=== PATIENT | female | born 1960 | race Caucasian/White ===

== ENCOUNTER 2020-09-02 15:58 | Emergency (ER) | payer BC, OTHER, SELFPAY ==
--- NOTE | ~2020-09-02 | XR_ITS ---
XR finger 5th LT min 2V DATE: 09/02/2020 16:16 INDICATION: Fall. Left fifth digit injury. TECHNIQUE: 4 views COMPARISON: None FINDINGS: There is a small degenerative ossicle or small avulsion fracture fragment of uncertain age at the anterior aspect of the proximal interphalangeal joint. Otherwise no fracture or dislocation, periosteal reaction or bone destruction is detected. No radiogr aphic foreign body or subcutaneous emphysema. IMPRESSION: Small degenerative ossicle or avulsion fracture of undetermined age at the anterior aspec t of the proximal interphalangeal joint Reviewed, dictated and finalized at location A. [facility] IMPRESSION: Small degenerative ossicle or avulsion fracture of undetermined age at the anterior aspect of the proximal interphalangeal joint
[2020-09-02 16:06] VITALS: BP 155/66; PULSE 66; RESP 16; TEMP 36.3; O2SAT 100
--- NOTE | 2020-09-02 16:13 | ED.UPPEXIN ---
HPI - Extremity Injury (Upper) General Chief Complaint: Extremity Injury, Upper Stated Complaint: injured finger Time Seen by Provider: 09/02/20 16:16 Source: patient and RN notes reviewed Mode of arrival: ambulatory Limitations: no limitations History of Present Illness HPI narrative: 60-year-old female presents with concern for pain to the fifth digit of the left hand after she caught the digit on her railing at home. Reports the digit was was deformed with the DIP joint being of place, reports she moved it back into place. Reports pain at the PIP joint, mild bruising and swelling. Denies any decreased sensation, range of motion, strength. MD complaint: injury to: finger Related Data Home Medications Medication Instructions Recorded Confirmed No Home Medications 09/02/20 09/02/20 Allergies Allergy/AdvReac Type Severity Reaction Status Date / Time codeine Allergy Unknown Other Verified 09/02/20 16:12 diazepam Allergy Unknown Other Verified 09/02/20 16:12 Review of Systems Review of Systems: Narrative: CONSTITUTIONAL: Denies malaise, chills, sweats, or fever. SKIN: Denies lacerations, abrasions, open skin MUSCULOSKELETAL: Reports pain, swelling, bruising to the fifth digit of the left hand NEUROLOGIC: Denies numbness, weakness All systems reviewed & are unremarkable except as noted in HPI and below PMFSH Family History Family History (Updated 02/09/17 @ 14:25 by DOCTOR UNKNOWN) Sibling Asthma Grandparent Family history of cardiovascular disease Family history of congenital heart disease Diabetes mellitus Mother Family history of arthritis Family history of Parkinson's disease Family history of osteoporosis Cerebrovascular accident Father Family history of malignant neoplasm Social History Social History Smoking status: Never smoker Alcohol intake: current Comments At time of signature, agree with nursing past medical, surgical, social and family history. There is no relevant family history pertinent to the presenting complaint Exam Narrative: Exam Narrative: GENERAL: Well-appearing, well-nourished, and in no acute distress. HEAD: Normocephalic EYES: PERRLA, conjunctivae clear NECK: Supple. CHEST: Speaks in full sentences. No respiratory distress. HEART: Regular rate and rhythm. Normal and equal peripheral pulses. EXTREMITIES: Fifth digit of left hand has normal strength and sensation. 5/5 strength with digit flexion, extension. Range of motion normal. No clubbing, cyanosis noted. Mild edema, ecchymosis, tenderness noted to the PIP joint of the fifth digit. Skin intact. Normal digital cascade with flexion of fingers, median, ulnar and radial nerve intact. Normal sensation of each side of finger. C Good capillary refill and radial pulse. Distal capillary refill less than 3 seconds. SKIN: Warn, dry, intact, pink. No rash NEURO: Alert and oriented x3. PSYCH: Normal mood and affect Course Course Emergency Course: Patient is aware of diagnosis, understands and agrees to treatment plan. Anticipatory guidance given. Patient agrees to follow-up as directed and is aware of reasons to seek care at the emergency department. Portions of this record may have been created with voice recognition software Vital Signs Vital signs: Vital Signs Temperature 97.4 F L 09/02/20 16:06 Pulse Rate 66 09/02/20 16:06 Respiratory Rate 16 09/02/20 16:06 Blood Pressure 155/66 H 09/02/20 16:06 Pulse Oximetry 100 09/02/20 16:06 Temperature 97.4 F L 09/02/20 16:06 Pulse Rate 66 09/02/20 16:06 Respiratory Rate 16 09/02/20 16:06 Blood Pressure 155/66 H 09/02/20 16:06 Pulse Oximetry 100 09/02/20 16:06 Reviewed. MDM - Extremity Injury (Upper) MDM Narrative Medical decision making narrative: Patients injury and pain is consistent with musculoskeletal etiology. No signs of neurological or vascular compromise on exam. Compartments and tissues are soft without signs of compartment synd
== END 2020-09-02 17:05 | disposition home or self-care (01) ==
PROVIDERS: Emergency Provider Nurse Practitioner
DX: S62.647A Nondisplaced fracture of proximal phalanx of left little finger, initial encounter for closed fracture (principal); W22.09XA Striking against other stationary object, initial encounter
CPT/HCPCS: 29130; 73140; 99214; G0463